=== PATIENT | male | born 1980 | race Caucasian/White ===

== ENCOUNTER 2023-04-12 01:09 | Emergency (ER) | payer MEDICAID ==
[~2023-04-12] VITALS: Ht 162.6 cm; Wt 64.4 kg
[2023-04-12 01:29] VITALS: BP 132/76; TEMP 98.2
[2023-04-12] MEDS ORDERED: OLANZAPINE 5 MG TABLET ONE (01:44)
[2023-04-12 01:46] VITALS: O2SAT 98
[2023-04-12] MEDS ORDERED: OLANZAPINE ZYDIS 5 MG TAB.RAPDIS PO ONE (02:00)
== END 2023-04-12 01:47 | disposition home or self-care (01) ==
LOC: ER 01:14
DX: F12.90 Cannabis use, unspecified, uncomplicated (principal); F41.9 Anxiety disorder, unspecified